=== PATIENT | female | born 1955 | race Caucasian/White ===

== ENCOUNTER 2017-05-12 11:24 | Emergency (ER) | payer MEDICAID ==
[~2017-05-12] VITALS: Ht 162.6 cm; Wt 93.1 kg
[2017-05-12 11:32] VITALS: Ht 162.6 cm; Wt 93.1 kg
--- NOTE | 2017-05-12 12:27 | ERD ---
ER Documentation Chief Complaint Chief Complaint Pt with flu like symptoms X 3 days. HPI 62-year-old female otherwise healthy comes in with sore throat, cough, congestion for 3 days. She has had clear mucus, nasal rhinorrhea, painful swallowing but no difficulty handling her secretions. The patient has been taking Mucinex, as well as ibuprofen. She denies chest pain, shortness breath. ROS All systems reviewed and are negative except as per history of present illness. Medications Home Meds Active Scripts Benzonatate* (Tessalon Perle*) 100 Mg Capsule, 100 MG PO Q8H Y for COUGH, #30 CAP Prov:CATARINO HUNTER PA-C 05/12/17 Ibuprofen* (Motrin*) 600 Mg Tab, 600 MG PO Q6, #30 TAB Prov:CATARINO HUNTER PA-C 05/12/17 Azithromycin* (Zithromax*) 250 Mg Tablet, 250 MG PO .ZPACK DIRECTED, #6 TAB TAKE 500 MG (2 TABS) THE FIRST DAY THEN 250 MG (1 TAB) DAYS 2-5 Prov:CATARINO HUNTER PA-C 05/12/17 Allergies Allergies: Coded Allergies: No Known Allergy (Unverified , 05/07/14) PMhx/Soc Hx Alcohol Use: No Hx Substance Use: No Hx Tobacco Use: No Physical Exam Vitals Vital Signs Date Time Temp Pulse Resp B/P Pulse Ox O2 Delivery O2 Flow Rate FiO2 05/12/17 12:48 99.8 97 05/12/17 11:32 100.0 107 18 158/71 100 Physical Exam General: Well-developed, well-nourished. The patient appears in no acute distress. HEENT: Head is normocephalic, atraumatic. No scleral icterus. Pupils are equal , round, and reactive. Oral mucous membranes are moist. No pharyngeal erythema. Neck: Supple. Nontender. Lungs: Clear to auscultation. Normal air movement. Heart: Regular rate and rhythm. S1 and S2 are normal. No murmurs, gallops, or rubs. Abdomen: Soft, nontender, nondistended. Bowel sounds are normoactive. Extremities: No clubbing or cyanosis. Normal pulses. Moving extremities x 4. No weakness. Neurologic: Alert and oriented 3. No focal deficits. Skin: Normal turgor. No rash or lesions. Results 24 hrs Current Medications Medications (Trade) Dose Ordered Sig/Miguel Ángel Route PRN Reason Start Time Stop Time Status Last Admin Dose Admin Acetaminophen (Tylenol Tab) 650 mg ONCE ONCE PO 05/12/17 12:30 05/12/17 12:31 DC 05/12/17 13:11 DIAGNOSTIC IMAGING REPORT Patient: PHILL DELGADILLO : 1955 Age: 62 Sex: F MR #: [id number] DOS: 05/12/17 1222 Ordering MD: CATARINO HUNTER PA-C Location: [facility] Room/Bed: PROCEDURE: XR Chest. CLINICAL INDICATION: Shortness of breath TECHNIQUE: Single portable view of the chest was obtained COMPARISON: No priors for comparison FINDINGS: The trachea is midline. The cardiac silhouette and pulmonary vascularity are within normal limits. The lungs are clear. The costophrenic angles are sharp. IMPRESSION: 1. No evidence of acute cardiopulmonary disease. RPTAT: AAPP Physician Marah Date Time Electronically viewed and signed by Physician Marah on 05/12/2017 12:55 JL/ CC: CATARINO HUNTER PA-C Procedures/MDM The patient is a no 62-year-old female who comes in with an acute upper respiratory infection, presumed viral. Chest x-ray is normal. The patient's vitals reviewed, she is afebrile, no tachycardia. She is well-appearing, nontoxic and I doubt sepsis. There is no evidence of pneumonia. Patient symptoms are most likely viral however due to patient's age and patient will be covered for bronchitis. The patient has a differential diagnosis of a viral upper respiratory infection, bacterial upper respiratory infection, bronchitis, pneumonia, pharyngitis, laryngitis, epiglottitis, croup, pneumonia. Patient has a normal pulmonary examination, clear breath sounds, normal pulse oximetry, with no corrective measures needed at this time. Fluids, rest, antipyretics were encouraged. Departure Diagnosis: Primary Impression: Cough CATARINO HUNTER PA-C May 12, 2017 12:27
[2017-05-12] MEDS ORDERED: ACETAMINOPHEN 325 MG TAB PO ONE (12:30)
[2017-05-12 12:48] VITALS: PULSE 97; TEMP 99.8
--- NOTE | 2017-05-12 12:55 | RADRPT ---
PROCEDURE: XR Chest. CLINICAL INDICATION: Shortness of breath TECHNIQUE: Single portable view of the chest was obtained COMPARISON: No priors for comparison FINDINGS: The trachea is midline. The cardiac silhouette and pulmonary vascularity are within normal limits. T he lungs are clear. The costophrenic angles are sharp. IMPRESSION: 1. No evidence of acute cardiopulmonary disease. RPTAT: AAPP Physician Marah Date Time Electronically viewed and signed by Daniel Hernandez Physician on 05/12/2017 12:55 [place]/
[2017-05-12] MEDS ORDERED: IBUP-1542 PO (13:33)
[2017-05-12] MEDS ORDERED: AZIT250T94 PO (13:33)
[2017-05-12] MEDS ORDERED: BENZ100C70 PO (13:33)
== END 2017-05-12 14:25 | disposition home or self-care (01) ==
LOC: FTE 11:24
DX: R05 Cough (principal)
CPT/HCPCS: 71010; Z7502; Z7610

== ENCOUNTER 2018-01-05 21:08 | Observation (INO) | END 2018-01-06 18:16 | disposition home or self-care (01) ==